=== PATIENT | female | born 1970 | race Caucasian/White ===

== ENCOUNTER 2021-03-02 07:20 | Inpatient (IN) ==
[2021-03-02] MEDS ORDERED: PANTOPRAZOLE 40 MG VIAL IV ONE (08:00)
--- NOTE | 2021-03-02 08:04 | Emergency Department Note ---
GI Bleed HPI General Chief complaint: Rectal Bleed Stated complaint: Rectal bleeding Time Seen by Provider: 03/02/21 07:38 Source: patient Mode of arrival: ambulatory Limitations: no limitations History of Present Illness HPI Narrative: Narrative: Presents to room T2 for evaluation of bright red blood per rectum. The patient reports a remote history of duodenal ulcer approximately 15 years ago. She states she is currently not taking any medication has had no difficulty until approximately 11 PM last night. She reports some mild to moderate midepigastric discomfort. This was followed by a large amount of bright red blood per rectum. She states that she went back to bed and then when she woke up this morning he again had a large amount of bright red blood per rectum. She denies any dark stool or melena. She did report some nausea but did not have any vomiting or hematemesis. She denies any lighthea dedness or dizziness. Symptoms are constant. She denies any exacerbating or alleviating factors. No reported blood thinners. Related Data Allergies Allergy/AdvReac Type Severity Reaction Status Date / Time cephalexin Allergy Severe Anaphylaxis Verified 03/02/21 07:21 Opioids - Morphine Analogues Allergy Severe Anaphylaxis Verified 03/02/21 07:21 Penicillins Allergy Severe Anaphylaxis Verified 03/02/21 07:21 Sulfa (Sulfonamide Allergy Severe Anaphylaxis Verified 03/02/21 07:21 Antibiotics) [place] Allergy Intermediate Anaphylaxis Verified 03/02/21 07:21 adhesive tape AdvReac Intermediate Rash Verified 03/02/21 07:21 latex AdvReac Rash Verified 03/02/21 07:21 Review of Systems ROS ROS Narrative: Narrative: All systems ED: reviewed and negative except as stated. [facility] Narrative Patient History Narrative: Narrative: Medical/Surgical/Family History All Active Problems (Updated 03/02/21 @ 10:26 by Júnior Sykes MD) Hematochezia (Acute) Abdominal pain (Acute) Injury of hand, left (Acute) History of hysterectomy for benign disease (Acute) S/P thyroidectomy (Acute) History of goiter (Acute) Social History Smoking Status: Never smoker Exam Narrative Narrative: Narrative: General Limitations: no limitations General appearance: Present alert and in no apparent distress Head Head: Present atraumatic, normocephalic and normal inspection Eye Eye: Present normal appearance and EOMI; Absent conjunctival injection ENT ENT: Present normal exam and mucous membranes moist Neck Neck: Present normal inspection and trachea midline Respiratory Respiratory: Present normal lung sounds bilaterally; Absent respiratory distress Cardiovascular Cardiovascular: Present regular rate, normal rhythm and normal heart sounds Adbominal Abdominal: Present soft and tenderness (Mild tenderness to palpation of the epigastric region); Absent distention, guarding and rebound Extremities Extremities: Present normal inspection; Absent tenderness Back Back: Present normal inspection; Absent tenderness Neurological Neurological: Present alert, oriented X3 and CN II-XII intact; Absent motor sensory deficit Psychiatric Psychiatric: Present normal affect and normal mood Skin Skin: Present warm (WNL) and dry; Absent rash Course Vital Signs Vital signs: Vital Signs Temperature 98.2 F 03/02/21 07:21 Pulse Rate 88 03/02/21 07:21 Respiratory Rate 16 03/02/21 07:21 Blood Pressure 144/62 03/02/21 07:21 Pulse Oximetry (%) 98 03/02/21 07:21 Temperature 98.2 F 03/02/21 07:21 Pulse Rate 88 03/02/21 07:21 Respiratory Rate 16 03/02/21 07:21 Blood Pressure 144/62 03/02/21 07:21 Pulse Oximetry (%) 98 03/02/21 07:21 MDM MDM Narrative Medical decision making narrative: Narrative: The patient presents for evaluation of epigastric pain with associated rectal bleeding. The patient's labs are unremarkable. The patient has had stable vital signs throughout the course the emergency department with no further episodes of rectal bleeding. The patient CT scan does show an ill-defined triangular structure in the left pelvis which has an undetermined etiology. I did discuss the case with the on- call foundry process engineer, Dr. Hansen. He is requested the patient have a GI prep and will plan to perform colonoscopy this afternoon. I discussed this treatment plan with the patient. Lab Data Lab results reviewed: Yes I reviewed the patient's lab results. Result diagrams: 03/02/21 08:12 03/02/21 08:12 Labs: Lab Results 03/02/21 03/02/21 03/02/21 Range/Units 08:12 08:12 08:16 WBC 13.2 H (4.5-11.0) K/mcL RBC 4.49 (4.00-5.20) M/mcL Hgb 14.8 (12.0-15.0) g/dL Hct 44.3 (36.0-48.0) % MCV 98.7 (80.0-100.0) fL MCH 33.0 (26.0-34.0) pg MCHC 33.4 (31.0-36.0) g/dL RDW 12.2 (11.5-14.5) % Plt Count 202 (140-440) K/mcL MPV 12.2 H (7.4-10.4) fL Neut % (Auto) 84.4 H (38.0-78.0) % Lymph % (Auto) 10.5 L (15.0-49.0) % [place] % (Auto) 4.6 (1.0-12.0) % Eos % (Auto) 0.2 (0.0-7.0) % Baso % (Auto) 0.3 (0.0-2.0) % Lymph # (Auto) 1.39 L (1.50-4.80) K/mcL [place] # (Auto) 0.60 (0.10-0.90) K/mcL Eos # (Auto) 0.02 (0.00-0.70) K/mcL Baso # (Auto) 0.04 (0.00-0.20) K/mcL Absolute Neutrophils 11.13 H (1.80-8.00) K/mcL POC PT 11.8 L (11.9-14.5) sec POC INR 1.0 (0.8-1.2) Sodium 139 (133-145) mmol/L Potassium 3.7 (3.3-5.1) mmol/L Chloride 105 (96-108) mmol/L Carbon Dioxide 22 (22-30) mmol/L Anion Gap 12.0 (8.0-16.0) BUN 11 (6-20) mg/dL Creatinine 0.7 (0.6-1.1) mg/dL POC Creatinine 0.5 L (0.6-1.2) mg/dL GFR Calculation 99 Glucose 135 H (70-105) mg/dL Calcium 9.4 (8.6-10.4) mg/dL Total Bilirubin 0.4 (0.1-1.0) mg/dL AST 31 (<32) U/L ALT 37 (<40) U/L Alkaline Phosphatase 134 H (39-117) U/L Total Protein 7.0 (5.9-8.4) gm/dL Albumin 4.3 (3.2-5.2) gm/dL Globulin 2.7 (2.2-3.7) gm/dL Albumin/Globulin Ratio 1.6 (1.0-2.3) Lipase 13 (7-60) U/L Radiology Data Radiology results reviewed: Yes I reviewed the patient's radiology results. Discharge Plan Patient/Caregiver Discharge Instructions Pt seen by ASSISTANT PROFESSOR OF MUSIC/PA only: No Clinical Impression: Hematochezia, Abdominal pain Patient Disposition: Xfer As Outpt/Obs ([facility]) Follow up with: Nghia Hurley MD [Primary Care Provider] -
[2021-03-02 08:26] LABS: POC Pro Time 11.8 sec (11.9-14.5)
[2021-03-02 08:28] LABS: POC Creatinine 0.5 mg/dL (0.6-1.2)
--- NOTE | 2021-03-02 09:17 | Cat Scan Report ---
INDICATION: GI BLEED COMPARISON: None. TECHNIQUE: Axial images were obtained through the abdomen and pelvis. Sagittally and coronally reformatted images. This patient has a history of severe contrast allergy FINDINGS: Lung bases:No pulmonary parenchymal density. No calcified or noncalcified nodule. No pleural or pericardial effusion Liver:Negative to the limits of noncontrast enhanced examination. Liver contour is smooth without evidence for cirrhosis Gallbladder, bilary:No calcified gallstones. No gallbladder wall thickening. No pericholecystic fluid. No dilated bile ducts Spleen:No splenomegaly Pancreas:No pancreatic mass. No peripancreatic abnormality Adrenal glands:Negative Kidneys, ureters, bladder:No obstructing or nonobstructing renal calculi. No hydronephrosis. No renal mass No hydroureter. No ureteral stone No bladder calculus Gastrointestinal:No significant diverticulosis or evidence for diverticulitis. No detectable colonic mass No mechanical small bowel obstruction. No small bowel dilatation. Appendix: The appendix is negative Vascular: Mild calcification of the abdominal aorta. No abdominal aortic aneurysm Lymphatic:No retroperitoneal adenopathy. No significant mesenteric adenopathy. Mesentery, peritoneum:No free intraperitoneal fluid. No intra-abdominal abscess. No pneumoperitoneum Reproductive:Previous hysterectomy. Ovaries are not well visualized. There is a triangular shaped soft tissue density in the left hemipelvis. This measures 2.3 x 4.9 x 3.8 cm. This is contiguous with bowel. There is a calcification within this. Etiology is not certain. This may be due to postoperative scarring as this patient has had a prior hysterectomy. Margins are not convex as would be typical of lymphadenopathy. If there are any comparison studies available these be helpful to review. 3-[address] follow-up with oral contrast material may be helpful. Patient apparently cannot receive intravenous contrast material. Pelvic MRI scan with intravenous contrast material could be helpful. Musculoskeletal:No lumbar compression fractures. No lytic lesions. Sacrum, pelvis, hips are negative. No anterior abdominal wall or inguinal hernia. IMPRESSION: 1. Previous hysterectomy 2. Triangular-shaped soft tissue density in the left side of the pelvis. Etiology is not certain. Follow-up CT scan or contrast enhanced MRI scan may be of benefit 3. No other abnormalities. Intravenous contrast material was not administered due to history of severe contrast allergy The exam was performed using radiation dose optimization techniques including, but not limited to, automated exposure control, adjustment of the mA and/or kV according to patient size and use of iterative reconstruction technique. Interpreted and Authenticated by: Aiden Hopper 03/02/21
[2021-03-02 09:21] LABS: ALT/SGPT 37 U/L (<40); AST/SGOT 31 U/L (<32); Albumin 4.3 gm/dL (3.2-5.2); Albumin/Globulin Ratio 1.6 (1.0-2.3); Alkaline Phosphatase 134 U/L (39-117); Bilirubin,Total 0.4 mg/dL (0.1-1.0); Blood Urea Nitrogen 11 mg/dL (6-20); Calcium 9.4 mg/dL (8.6-10.4); Carbon Dioxide 22 mmol/L (22-30); Chloride 105 mmol/L (96-108); Globulin 2.7 gm/dL (2.2-3.7); Glomerular Filtration Rate 99; Glucose 135 mg/dL (70-105)
[2021-03-02 09:30] LABS: Basophils # (Auto) 0.04 K/mcL (0.00-0.20); Basophils % (Auto) 0.3 % (0.0-2.0); Eosinophils # (Auto) 0.02 K/mcL (0.00-0.70); Eosinophils % (Auto) 0.2 % (0.0-7.0); Hematocrit 44.3 % (36.0-48.0); Hemoglobin 14.8 g/dL (12.0-15.0); Lymphocytes # (Auto) 1.39 K/mcL (1.50-4.80); Lymphocytes % (Auto) 10.5 % (15.0-49.0); Mean Cell Volume 98.7 fL (80.0-100.0); Mean Corpuscular HGB Conc 33.4 g/dL (31.0-36.0); Mean Platelet Volume 12.2 fL (7.4-10.4); Monocytes % (Auto) 4.6 % (1.0-12.0); Neutrophils % (Auto) 84.4 % (38.0-78.0); Platelet Count 202 K/mcL (140-440); RBC 4.49 M/mcL (4.00-5.20); Red Cell Distribution Width 12.2 % (11.5-14.5); WBC 13.2 K/mcL (4.5-11.0)
[2021-03-02] MEDS ORDERED: PEG 3350/NA SULF,BICARB,CL/KCL 4,000 ML ORAL.SOL PO ONE (10:25)
[2021-03-02] MEDS ORDERED: FAMOTIDINE/PF 20 MG/2 ML VIAL IV ONE (12:24)
[2021-03-02] MEDS ORDERED: methylPREDNISolone SOD SUCC 125 MG/2 ML VIAL IV ONE (12:24)
[2021-03-02] MEDS ORDERED: diphenhydrAMINE 50 MG/ML VIAL IV ONE (12:24)
--- NOTE | 2021-03-02 15:21 | Internal Med History&Physical ---
HPI History of Present Illness Patient information: Note initiated : 03/02/21 at 3:04 pm Service Date, if different from initiated Date: [] Patient: Priti Alves 50 y/o F admitted on for Rectal Bleeding . Chief Complaint: [] History of present illness: Ms. Alves is a 50 year old female with a history of left thyroidectomy, hysterectomy complicated by ovarian abscess requiring multiple surgeries and mesh placement, multiple reported allergies who presented to the ED with signs of hematochezia associated with sharp diffuse abdominal pain. In the ED, the patient was tachycardic however hemodynamically stable. She is afebrile and in no distress. Routine labs show a leukocytosis likely stress-induced, hemoglobin was normal. Abdominal exam is soft, nontender, no guarding. The patient has irregular tachycardia on exam. CT abdomen and pelvis without contrast due to patient allergy showed a previous hysterectomy, and a triangular shaped soft tissue density in the left side of the pelvis of uncertain etiology, no other abnormalities were noted on the CT scan. The patient refused routine bowel preparation with GoLYTELY due to her history of allergies. She is willing to try Epson salt and multiple enemas for bowel preparation. Review of systems Constitutional: Positive for chills blood no fevers Eyes: no vision changes or pain Cardiovascular: Positive for episodes of tachycardia, no chest pain Respiratory: no cough or dyspnea Gastrointestinal: Positive for pain and nausea, no nausea. Positive for bright red blood per rectum. Genitourinary: no dysuria or difficulty voiding Musculoskeletal: Positive back pain Integumentary: no skin lesion or wound Neurological: no focal weakness or numbness Psychiatric: Denies anxiety PFSH PFSH All Active Problems (Updated 03/02/21 @ 10:26 by Júnior Sykes MD) Hematochezia (Acute) Abdominal pain (Acute) Injury of hand, left (Acute) History of hysterectomy for benign disease (Acute) S/P thyroidectomy (Acute) History of goiter (Acute) MEDS/ALLERGIES Home Medications and Allergies Home Medications Medication Instructions Recorded Confirmed Type [id number] 1 tab PO DAILY 03/02/21 03/02/21 History nettle leaf (urtica dioica) 425 mg PO PRN PRN 03/02/21 03/02/21 History [[place] [facility]] Allergies Allergy/AdvReac Type Severity Reaction Status Date / Time cephalexin Allergy Severe Anaphylaxis Verified 03/02/21 07:21 Opioids - Morphine Analogues Allergy Severe Anaphylaxis Verified 03/02/21 07:21 Penicillins Allergy Severe Anaphylaxis Verified 03/02/21 07:21 Sulfa (Sulfonamide Allergy Severe Anaphylaxis Verified 03/02/21 07:21 Antibiotics) [place] Allergy Intermediate Anaphylaxis Verified 03/02/21 07:21 adhesive tape AdvReac Intermediate Rash Verified 03/02/21 07:21 latex AdvReac Rash Verified 03/02/21 07:21 EXAM Constitutional Vitals: Temp Pulse Resp BP Pulse Ox 98.2 F 84 16 132/108 96 03/02/21 07:21 03/02/21 14:37 03/02/21 07:21 03/02/21 14:31 03/02/21 14:37 Additional findings Additional findings: Head: Atraumatic, normal inspection. Eyes: normal appearance, no scleral icterus. Neck: full ROM Respiratory: no respiratory distress. Cardiovascular: Irregular tachycardia, S1, S2. GI/Abdominal: soft, nontender, no guarding. Extremities: full range of motion, nontender. Neurological: CN II-XII intact, intact motor, intact sensation. Psychiatric: normal mood. Skin: warm, normal color DATA Data Completed and Pending Labs: Labs from last 24 hours 03/02/21 03/02/21 03/02/21 08:16 08:12 08:12 WBC 13.2 H RBC 4.49 Hgb 14.8 Hct 44.3 MCV 98.7 MCH 33.0 MCHC 33.4 RDW 12.2 Plt Count 202 MPV 12.2 H Neut % (Auto) 84.4 H Lymph % (Auto) 10.5 L [place] % (Auto) 4.6 Eos % (Auto) 0.2 Baso % (Auto) 0.3 Lymph # (Auto) 1.39 L [place] # (Auto) 0.60 Eos # (Auto) 0.02 Baso # (Auto) 0.04 Absolute Neutrophils 11.13 H POC PT 11.8 L POC INR 1.0 Sodium 139 Potassium 3.7 Chloride 105 Carbon Dioxide 22 Anion Gap 12.0 BUN 11 Creatinine 0.7 POC Creatinine 0.5 L GFR Calculation 99 Glucose 135 H Calcium 9.4 Total Bilirubin 0.4 AST 31 ALT 37 Alkaline Phosphatase 134 H Total Protein 7.0 Albumin 4.3 Globulin 2.7 Albumin/Globulin Ratio 1.6 Lipase 13 A/P Narrative A/P Narrative: Assessment: 50-year-old female with history of partial thyroidectomy, hysterectomy (age 25) complicated by perianal abscess requiring revision surgery and mesh placement, reported history of rectocele s/p repair, multiple reported allergies admitted for hematochezia associated with diffuse sharp abdominal pain. Abdominal exam in the ED was benign. Hemoglobin normal. Patient refused golyetely due to allergies therefore admitted for alternative bowel preparation. #Hematochezia-likely lower GI bleed #Tachycardia #Leukocytosis-suspect stress induced #Left pelvic soft tissue density -reported on CT scan, likely related to previous surgical complications -unclear if associated with GI bleed #Hx hysterectomy #Hx partial thyroidectomy #Multiple allergies Plan -Admit to observation. -Trend hemoglobin. -Follow CBC, vitals trend given leukocytosis. -Bowel preparation w/ Epson salts and water and tap water enema in AM, patient refuses other bowel preperation options. -GI consulting. -Clear liquid diet for bowel preparation. -EKG for rhythm evaluation-afib? -DVT ppx: SCD for now. -Code status: Full -Disposition: home Time Spent With Patient Time: Total time spent is greater than 50% in coordination of care (as documented) at patient's floor/unit and/or counseling patient:
[2021-03-02] MEDS ORDERED: DOCUSATE SODIUM 100 MG CAPSULE PO PRN (15:55)
[2021-03-02] MEDS ORDERED: ONDANSETRON 4 MG/2 ML VIAL IV PRN (15:55)
[2021-03-02] MEDS ORDERED: SENNOSIDES 1 TABLET PO PRN (15:55)
[2021-03-02] MEDS ORDERED: [UNRECOGNIZED DRUG - OTHER] PO ONE (17:00)
[2021-03-02] MEDS ORDERED: MAGNESIUM SULFATE PO ONE (17:00)
[2021-03-02] MEDS: 0.9 % SODIUM CHLORIDE 10 ML SYRINGE IV SCH (20:57)
[2021-03-03] MEDS ORDERED: HYDROmorphone 0.5 MG/0.5 ML SYRINGE ONE ×2 (00:07→05:18)
[2021-03-03] MEDS: HYDROmorphone 0.5 MG/0.5 ML SYRINGE IV PRN ×5 (00:08→19:03)
[2021-03-03] MEDS: 0.9 % SODIUM CHLORIDE 10 ML SYRINGE IV SCH ×3 (05:20→21:41)
[2021-03-03] MEDS ORDERED: [UNRECOGNIZED DRUG - OTHER] PO ONE (06:00)
[2021-03-03] MEDS ORDERED: MAGNESIUM SULFATE PO ONE (06:00)
[2021-03-03 07:17] LABS: Hematocrit 40.2 % (36.0-48.0); Hemoglobin 13.2 g/dL (12.0-15.0); Mean Cell Volume 100.2 fL (80.0-100.0); Mean Corpuscular HGB Conc 32.8 g/dL (31.0-36.0); Platelet Count 194 K/mcL (140-440); RBC 4.01 M/mcL (4.00-5.20); Red Cell Distribution Width 12.5 % (11.5-14.5); WBC 12.3 K/mcL (4.5-11.0)
[2021-03-03 08:13] LABS: Platelet Estimate NORMAL (Normal)
[2021-03-03 08:24] LABS: Band Neutrophils % 1 % (0-10); Lymphocytes % 20 % (15-49); Macrocytosis 1+ (None Seen); Monocytes % (Manual) 5 % (1-12); RBC Morphology ABNORMAL (Normal); Segmented Neutrophils % 74 % (38-78)
[2021-03-03] MEDS ORDERED: KETAMINE 50 MG/ML ML IV PRN (08:53)
[2021-03-03] MEDS ORDERED: PROPOFOL 200 MG/20 ML VIAL IV SCH (09:00)
[2021-03-03] MEDS ORDERED: MIDAZOLAM 2 MG/2 ML VIAL IV SCH (09:00)
--- NOTE | 2021-03-03 10:34 | Internal Med Progress Note ---
SUBJECTIVE Subjective Patient information: Note initiated : 03/03/21 at 10:34 am Service Date, if different from initiated Date: [] Patient: Priti Alves 50 y/o F admitted on 03/02/21 for Rectal Bleeding . Chief Complaint: [] Interval history: Ms. Alves is a 50 year old female with a history of left thyroidectomy, hysterectomy complicated by ovarian abscess requiring multiple surgeries and mesh placement, multiple reported allergies who presented to the ED with signs of hematochezia associated with sharp diffuse abdominal pain. In the ED, the patient was tachycardic however hemodynamically stable. She is afebrile and in no distress. Routine labs show a leukocytosis likely stress- induced, hemoglobin was normal. Abdominal exam is soft, nontender, no guarding. The patient has irregular tachycardia on exam. CT abdomen and pelvis without contrast due to patient allergy showed a previous hysterectomy, and a triangular shaped soft tissue density in the left side of the pelvis of uncertain etiology, no other abnormalities were noted on the CT scan. The patient refused routine bowel preparation with GoLYTELY due to her history of allergies. She is willing to try Epson salt and multiple enemas for bowel preparation. / Leukocytosis improved but high grade temperatures. Colonoscopy showed ischemic colitis-started clear liquid diet and bowel regimen. EKG showed atrial fibrillation. Physical exam Head: Atraumatic, normal inspection. Eyes: normal appearance, no scleral icterus. Neck: full ROM Respiratory: no respiratory distress. Cardiovascular: normal rate and rhythm, S1, S2. GI/Abdominal: soft, diffuse tenderness present, no guarding Extremities: full range of motion, nontender. Neurological: CN II-XII intact, intact motor, intact sensation. Psychiatric: normal mood. Skin: warm, normal color Constitutional Vitals: Vital Signs Temp Pulse Resp BP Pulse Ox 98.1 F 79 16 97/64 95 03/03/21 08:00 03/03/21 08:00 03/03/21 08:00 03/03/21 08:00 03/03/21 08:00 Period Temp Pulse Resp BP Sys/Young Pulse Ox Last 24 Hr 98.1 F-99.5 F 78-132 12-20 96-139/60-128 94-98 Intake and Output 03/02/21 03/03/21 03/03/21 21:59 05:59 13:59 Intake Total 680 240 500 Output Total 1325 500 500 Balance -645 -260 0 Weight 66.224 kg Intake & Output: Intake & Output 03/02/21 03/03/21 03/03/21 21:59 05:59 13:59 Intake Total 680 240 500 Output Total 1325 500 500 Balance -645 -260 0 Weight 66.224 kg Intake: Oral 680 240 500 Output: Void Amount 125 225 Urine/Stool Mix 1200 275 350 Stool 150 Other: Urine Appearance Clear Urine Color Bright Yellow Bright Yellow Blood Tinged Urine Odor Strong Stool Size Small Smear Small Stool Color Bright Red Blood Bright Red Blood Dark Red Blood Blood Tinged Stool Consistency Watery # Voids 3 # Bowel Movements 2 OBJ DATA Labs CBC & Chem 7: 03/03/21 05:35 03/02/21 08:12 Labs: Abnormal Lab Results 03/03/21 03/02/21 03/02/21 05:35 08:16 08:12 WBC 12.3 H MCV 100.2 H MPV 12.0 H Neut % (Auto) Lymph % (Auto) Lymph # (Auto) Absolute Neutrophils RBC Morphology Abnormal A Macrocytosis 1+ A POC PT 11.8 L POC Creatinine 0.5 L Glucose 135 H Alkaline Phosphatase 134 H 03/02/21 08:12 WBC 13.2 H MCV MPV 12.2 H Neut % (Auto) 84.4 H Lymph % (Auto) 10.5 L Lymph # (Auto) 1.39 L Absolute Neutrophils 11.13 H RBC Morphology Macrocytosis POC PT POC Creatinine Glucose Alkaline Phosphatase Meds: Medications Diagnostic Test (Pha) (Accu-Chek 1 Each Strip) 1 each FS UD PRN PRN Reason: DM Stop: 03/03/21 16:53 Docusate Sodium (Docusate Sodium 100 Mg Capsule) 100 mg PO BID PRN PRN Reason: Constipation Hydromorphone HCl (Hydromorphone 0.5 Mg/0.5 Ml Syringe) 0.25 mg IV Q4HP PRN; Protocol PRN Reason: Per Pain Protocol Last Admin: 03/03/21 05:20 Dose: 0.25 mg Documented by: Ketamine HCl (Ketamine 50 Mg/Ml Ml) 50 mg IV ONCE PRN PRN Reason: Sedation Stop: 03/03/21 16:53 Midazolam HCl (Midazolam 2 Mg/2 Ml Vial) 0 mg IV ONCE CHAD Stop: 03/03/21 16:53 Ondansetron HCl (Ondansetron 4 Mg/2 Ml Vial) 4 mg IV Q6HP PRN PRN Reason: Nausea And Vomiting Propofol (Propofol 200 Mg/20 Ml Vial) 0 mg IV UD [facility] Stop: 03/03/21 16:53 Senna (Sennosides 1 Tablet) 2 tab PO HS PRN PRN Reason: Constipation Sodium Chloride (0.9 % Sodium Chloride 10 Ml Syringe) 10 ml IV Q8 [facility] Last Admin: 03/03/21 05:20 Dose: 10 ml Documented by: A/P Narrative A/P Narrative: Assessment: 50-year-old female with history of partial thyroidectomy, hysterectomy (age 25) complicated by perianal abscess requiring revision surgery and mesh placement, reported history of rectocele s/p repair, multiple reported allergies admitted for hematochezia associated with diffuse sharp abdominal pain. Abdominal exam in the ED was benign. Hemoglobin normal. Patient refused golyetely due to allergies therefore admitted for alternative bowel preparation. #Ischemic colitis w/ hematochezia: resolved hematochezia #Atrial fibrillation-likely paroxysmal #Leukocytosis #Left pelvic soft tissue density -reported on CT scan, likely related to previous surgical complications #Hx hysterectomy #Hx partial thyroidectomy #Multiple allergies Plan -Clear liquid diet, bowel regimen, serial abdominal exams. -Follow CBC and CRP. -GI following. -Discuss atrial fibrillation diagnosis with patient. -DVT ppx: SCD -Code status: Full -Disposition: home Time Spent With Patient Time: Total time spent is greater than 50% in coordination of care (as documented) at patient's floor/unit and/or counseling patient: QUALITY VTE Deep Vein Thrombosis/Pulmonary Embolism Present on Admission: No
[2021-03-03] MEDS ORDERED: MIDAZOLAM 2 MG/2 ML VIAL ONE (12:46)
[2021-03-03] MEDS ORDERED: LACTULOSE 20 GM/30 ML ORAL.SOL PO PRN (13:47)
[2021-03-03] MEDS: LACTATED RINGERS 1,000 ML IV SCH ×2 (14:39→21:41)
[2021-03-03] MEDS ORDERED: MAGNESIUM HYDROXIDE 30 ML ORAL.SUSP PO SCH (21:00)
[2021-03-04] MEDS: 0.9 % SODIUM CHLORIDE 10 ML SYRINGE IV SCH ×3 (04:25→21:20)
[2021-03-04] MEDS: LACTATED RINGERS 1,000 ML IV SCH ×3 (06:30→21:20)
[2021-03-04 08:16] LABS: Basophils # (Auto) 0.03 K/mcL (0.00-0.20); Basophils % (Auto) 0.4 % (0.0-2.0); Eosinophils # (Auto) 0.11 K/mcL (0.00-0.70); Eosinophils % (Auto) 1.5 % (0.0-7.0); Hematocrit 39.6 % (36.0-48.0); Hemoglobin 13.4 g/dL (12.0-15.0); Lymphocytes # (Auto) 2.02 K/mcL (1.50-4.80); Lymphocytes % (Auto) 26.7 % (15.0-49.0); Mean Cell Volume 97.8 fL (80.0-100.0); Mean Corpuscular HGB Conc 33.8 g/dL (31.0-36.0); Mean Platelet Volume 11.7 fL (7.4-10.4); Monocytes # (Auto) 0.48 K/mcL (0.10-0.90); Monocytes % (Auto) 6.3 % (1.0-12.0); Neutrophils % (Auto) 65.1 % (38.0-78.0); Platelet Count 189 K/mcL (140-440); RBC 4.05 M/mcL (4.00-5.20); Red Cell Distribution Width 12.2 % (11.5-14.5); WBC 7.6 K/mcL (4.5-11.0)
[2021-03-04 08:30] LABS: ALT/SGPT 23 U/L (<40); AST/SGOT 22 U/L (<32); Albumin 3.8 gm/dL (3.2-5.2); Albumin/Globulin Ratio 1.6 (1.0-2.3); Alkaline Phosphatase 98 U/L (39-117); Bilirubin,Direct < 0.2 mg/dL (0-0.3); Bilirubin,Total 0.7 mg/dL (0.1-1.0); Blood Urea Nitrogen 8 mg/dL (6-20); Calcium 8.8 mg/dL (8.6-10.4); Carbon Dioxide 24 mmol/L (22-30); Chloride 102 mmol/L (96-108); Globulin 2.4 gm/dL (2.2-3.7); Glomerular Filtration Rate 111; Glucose 88 mg/dL (70-105); Lactate Dehydrogenase 147 U/L (135-225); Phosphorous 2.7 mg/dL (2.5-4.5); Triglycerides 164 mg/dL (<150); Uric Acid 9.2 mg/dL (2.5-8.0)
--- NOTE | 2021-03-04 09:25 | Internal Med Progress Note ---
SUBJECTIVE Subjective Patient information: Note initiated : 03/04/21 at 9:20 am Service Date, if different from initiated Date: [] Patient: Priti Alves 50 y/o F admitted on 03/03/21 for Rectal Bleeding . Chief Complaint: [] Interval history: Ms. Alves is a 50 year old female with a history of left thyroidectomy, hysterectomy complicated by ovarian abscess requiring multiple surgeries and mesh placement, multiple reported allergies who presented to the ED with signs of hematochezia associated with sharp diffuse abdominal pain. In the ED, the patient was tachycardic however hemodynamically stable. She is afebrile and in no distress. Routine labs show a leukocytosis likely stress- induced, hemoglobin was normal. Abdominal exam is soft, nontender, no guarding. The patient has irregular tachycardia on exam. CT abdomen and pelvis without contrast due to patient allergy showed a previous hysterectomy, and a triangular shaped soft tissue density in the left side of the pelvis of uncertain etiology, no other abnormalities were noted on the CT scan. The patient refused routine bowel preparation with GoLYTELY due to her history of allergies. She is willing to try Epson salt and multiple enemas for bowel preparation. 03/03 Leukocytosis improved but high grade temperatures. Colonoscopy showed ischemic colitis-started clear liquid diet and bowel regimen. EKG showed atrial fibrillation. 03/04 Improving abdominal discomfort. Discussed atrial fibrillation and management, CHADS-VASC score 1 and HAS-BLED score 0. Patient agreed to a TTE ECHO. Declined rate control medications but agreed to cardiology referral at discharge. Physical exam Head: Atraumatic, normal inspection. Eyes: normal appearance, no scleral icterus. Neck: full ROM Respiratory: no respiratory distress. Cardiovascular: irregular rhythm, tachycardia GI/Abdominal: soft, mild tenderness present, no guarding Extremities: full range of motion, nontender. Neurological: CN II-XII intact, intact motor, intact sensation. Psychiatric: normal mood. Skin: warm, normal color Constitutional Vitals: Vital Signs Temp Pulse Resp BP Pulse Ox 98.6 F 92 H 18 115/76 95 03/04/21 06:54 03/04/21 06:54 03/04/21 06:54 03/04/21 06:54 03/04/21 06:54 Period Temp Pulse Resp BP Sys/Young Pulse Ox Last 24 Hr 97.8 F-99.0 F 81-114 14-25 105-133/67-88 94-100 Intake and Output 03/03/21 03/04/21 03/04/21 21:59 05:59 13:59 Intake Total 2240 500 Output Total 825 350 Balance 1415 150 Weight 65.459 kg Intake & Output: Intake & Output 03/03/21 03/04/21 03/04/21 21:59 05:59 13:59 Intake Total 2240 500 Output Total 825 350 Balance 1415 150 Weight 65.459 kg Intake: Oral 2240 500 Output: Void Amount 350 Urine/Stool Mix 825 Other: Meal Breakfast Percent of Meal Consumed 50% Feeding Ability Independent Urine Appearance Clear Clear Urine Color Bright Yellow Straw Urine Odor Normal OBJ DATA Labs CBC & Chem 7: 03/04/21 07:40 03/04/21 07:40 Labs: Abnormal Lab Results 03/04/21 03/04/21 03/03/21 07:40 07:40 05:35 WBC 12.3 H MCV 100.2 H MPV 11.7 H 12.0 H Neut % (Auto) Lymph % (Auto) Lymph # (Auto) Absolute Neutrophils RBC Morphology Abnormal A Macrocytosis 1+ A POC PT Creatinine 0.5 L POC Creatinine Glucose Uric Acid 9.2 H Alkaline Phosphatase Triglycerides 164 H 03/02/21 03/02/21 03/02/21 08:16 08:12 08:12 WBC 13.2 H MCV MPV 12.2 H Neut % (Auto) 84.4 H Lymph % (Auto) 10.5 L Lymph # (Auto) 1.39 L Absolute Neutrophils 11.13 H RBC Morphology Macrocytosis POC PT 11.8 L Creatinine POC Creatinine 0.5 L Glucose 135 H Uric Acid Alkaline Phosphatase 134 H Triglycerides Meds: Medications Docusate Sodium (Docusate Sodium 100 Mg Capsule) 100 mg PO BID PRN PRN Reason: Constipation Hydromorphone HCl (Hydromorphone 0.5 Mg/0.5 Ml Syringe) 0.25 mg IV Q4HP PRN; Protocol PRN Reason: Per Pain Protocol Last Admin: 03/03/21 19:03 Dose: 0.25 mg Documented by: Lactated Ringer's (Lactated Ringers) 1,000 mls @ 125 mls/hr IV .Q8H [facility] Last Admin: 03/04/21 06:30 Dose: Not Given Documented by: Lactulose (Lactulose 20 Gm/30 Ml Oral.Lea) 20 gm PO QID PRN PRN Reason: Constipation Ondansetron HCl (Ondansetron 4 Mg/2 Ml Vial) 4 mg IV Q6HP PRN PRN Reason: Nausea And Vomiting Polyethylene Glycol (Polyethylene Glycol 3350 17 Gm Packet) 17 gm PO DAILY CHAD Senna (Sennosides 1 Tablet) 2 tab PO HS PRN PRN Reason: Constipation Sodium Chloride (0.9 % Sodium Chloride 10 Ml Syringe) 10 ml IV Q8 [facility] Last Admin: 03/04/21 04:25 Dose: 10 ml Documented by: A/P Narrative A/P Narrative: Assessment: 50-year-old female with history of partial thyroidectomy, hysterectomy (age 25) complicated by perianal abscess requiring revision surgery and mesh placement, reported history of rectocele s/p repair, multiple reported allergies admitted for hematochezia associated with diffuse sharp abdominal pain. Abdominal exam in the ED was benign. Hemoglobin normal. Patient refused golyetely due to allergies therefore admitted for alternative bowel preparation. Colonoscopy was consistent with ischemic colitis, GI feels likely from severe constipation. EKG showed atrial fibrillation. ECHO ordered. P atient started on clear liquid diet for two days then advance with bowel regimen. Abdominal discomfort improved and hematochezia resolved. The patient declined rate control medication for atrial fibrillation, not interested in anticoagulation after GI bleeding issues resolve. CHADS-VASC score 1, HAS-BLED score 0. #Ischemic colitis w/ hematochezia: resolved hematochezia #Paroxysmal atrial fibrillation #Leukocytosis: resolved #Left pelvic soft tissue density -reported on CT scan, likely related to previous surgical complications #Hx hysterectomy #Hx partial thyroidectomy #Multiple allergies Plan -Clear liquid diet, bowel regimen, serial abdominal exams. -IV fluid. -Diet advance per GI. -Discontinued dilaudid prn -TTE ECHO. -DVT ppx: SCD -Code status: Full -Disposition: home, cardiology referral for atrial fibrillation Time Spent With Patient Time: Total time spent is greater than 50% in coordination of care (as documented) at patient's floor/unit and/or counseling patient: QUALITY VTE Deep Vein Thrombosis/Pulmonary Embolism Present on Admission: No
--- NOTE | 2021-03-04 10:08 | Colonoscopy Procedure Note ---
Colonoscopy Procedure Notes Procedure Information Patient information: Note initiated : 03/04/21 at 10:04 am Service Date: 03/03/21 Patient: Priti Alves 50 y/o F admitted on 03/03/21 for Rectal Bleeding . Pre-op diagnosis general: GI Bleed, probable ischemic colitis Post-op diagnosis general: Ischemic colitis, rectal polyp Procedure: Colonoscopy with Bx Procedure narrative: The procedure, alternatives and risks were discussed with the patient and the patient's questions were answered. With endoscopist- administered intravenous sedation, the Olympus colonoscope was introduced into the rectum and advanced to the cecum. Ileocecal valve was identified, intubated, and several centimeters of the terminal ileum were examined and appeared normal. Erythema, edema and ulceration was seen extending from the distal transverse colon to the proximal sigmoid colon; this was biopsied. Appearance consistent with severe ischemic colitis. Colonic polyp was seen in the rectum. The rectal polyp was removed with biopsy forceps technique. It was retrieved for histological examination. Scope was withdrawn. Assessment: Ischemic colitis, rectal polyp
[2021-03-04] MEDS: POLYETHYLENE GLYCOL 3350 17 GM PACKET PO SCH (12:20)
[2021-03-05] MEDS: 0.9 % SODIUM CHLORIDE 10 ML SYRINGE IV SCH (04:43)
[2021-03-05 06:41] LABS: Basophils # (Auto) 0.05 K/mcL (0.00-0.20); Basophils % (Auto) 0.6 % (0.0-2.0); Eosinophils # (Auto) 0.18 K/mcL (0.00-0.70); Hematocrit 37.3 % (36.0-48.0); Hemoglobin 12.4 g/dL (12.0-15.0); Lymphocytes # (Auto) 2.12 K/mcL (1.50-4.80); Lymphocytes % (Auto) 23.4 % (15.0-49.0); Mean Cell Volume 98.2 fL (80.0-100.0); Mean Corpuscular HGB Conc 33.2 g/dL (31.0-36.0); Mean Platelet Volume 11.8 fL (7.4-10.4); Monocytes # (Auto) 0.61 K/mcL (0.10-0.90); Monocytes % (Auto) 6.7 % (1.0-12.0); Neutrophils % (Auto) 67.3 % (38.0-78.0); Platelet Count 203 K/mcL (140-440); Red Cell Distribution Width 12.3 % (11.5-14.5); WBC 9.1 K/mcL (4.5-11.0)
[2021-03-05 07:11] LABS: ALT/SGPT 19 U/L (<40); AST/SGOT 16 U/L (<32); Albumin 3.6 gm/dL (3.2-5.2); Albumin/Globulin Ratio 1.5 (1.0-2.3); Alkaline Phosphatase 99 U/L (39-117); Bilirubin,Direct < 0.2 mg/dL (0-0.3); Bilirubin,Total 0.7 mg/dL (0.1-1.0); Blood Urea Nitrogen 10 mg/dL (6-20); Calcium 8.8 mg/dL (8.6-10.4); Carbon Dioxide 24 mmol/L (22-30); Chloride 107 mmol/L (96-108); Globulin 2.4 gm/dL (2.2-3.7); Glomerular Filtration Rate 111; Glucose 89 mg/dL (70-105); Lactate Dehydrogenase 161 U/L (135-225); Phosphorous 2.8 mg/dL (2.5-4.5); Triglycerides 147 mg/dL (<150); Uric Acid 8.9 mg/dL (2.5-8.0)
[2021-03-05] MEDS: LACTATED RINGERS 1,000 ML IV SCH (10:16)
[2021-03-05] MEDS: POLYETHYLENE GLYCOL 3350 17 GM PACKET PO SCH (10:20)
--- NOTE | 2021-03-05 10:54 | Discharge Summary ---
Discharge Provider Provider Patient information: Note initiated : 03/05/21 at 10:39 am Service Date, if different from initiated Date: [] Patient: Priti Alves 50 y/o F admitted on 03/03/21 for Rectal Bleeding . Chief Complaint: [] Date of admission: 03/03/21 14:19 Discharge date: 03/05/21 Primary care physician: Nghia Hurley Consults: 03/02/21 Consult to Physician [CONS] Stat Comment: Consulting Provider: En Kohler Reason For Exam: Physician to Consult Consult to Physician [CONS] Stat Comment: Consulting Provider: Nathaniel Yeung Reason For Exam: Physician to Consult Discharge Meds Discharge Medications Home Medications [id number] 1 tab PO DAILY 03/02/21 [History Confirmed 03/02/21 Last Taken 03/07/20] nettle leaf (urtica dioica) 425 mg PO PRN PRN 03/02/21 [History Confirmed 03/02/21 Last Taken 03/02/21] COURSE Hospital Course Hospital course: Ms. Alves is a 50 year old female with a history of left thyroidectomy, hysterectomy complicated by ovarian abscess requiring multiple surgeries and mesh placement, multiple reported allergies who presented to the ED with signs of hematochezia associated with sharp diffuse abdominal pain. In the ED, the patient was tachycardic however hemodynamically stable. She is afebrile and in no distress. Routine labs show a leukocytosis likely stress- induced, hemoglobin was normal. Abdominal exam is soft, nontender, no guarding. The patient has irregular tachycardia on exam. CT abdomen and pelvis without contrast due to patient allergy showed a previous hysterectomy, and a triangular shaped soft tissue density in the left side of the pelvis of uncertain etiology, no other abnormalities were noted on the CT scan. The patient refused routine bowel preparation due to her history of allergies however was willing to try Epson salt and multiple enemas for bowel preparation. 4 Leukocytosis improved but high grade temperatures. Colonoscopy showed ischemic colitis-started clear liquid diet and bowel regimen. EKG showed atrial fibrillation. 03/04 Improving abdominal discomfort. Discussed atrial fibrillation and management, CHADS-VASC score 1 and HAS-BLED score 0. Patient agreed to a TTE ECHO. Declined rate control medications but agreed to cardiology referral at discharge. / Tolerating full liquid diet. Hematochezia resolved and hemoglobin stable. Discharged to home to continue full liquid diet for a couple days before slowly advancing back to regular and continuing bowel regimen. The patient is taking prune juice and herbal remedies for bowel regimen. She refused Miralax, Lactulose, Milk of Magnesia due to concerns of allergies given her history of multiple previous issues with pharmacologic medications. Post hospital follow up; Follow up with cardiology to discuss atrial fibrillation. Follow up pending ECHO results. Consider MRI of pelvis to further evaluate triangular soft tissue density noted on CT scan. Discharge diagnosis: Ischemic colitis Secondary discharge diagnosis: Atrial fibrillation Constipation Time Spent with Patient Time attestation: Total time spent providing and/or coordinating discharge services: EXAM Constitutional Vitals: Temp Pulse Resp BP Pulse Ox 98.9 F 71 16 103/64 97 03/05/21 06:52 03/05/21 06:52 03/05/21 06:52 03/05/21 06:52 03/05/21 06:52 Additional findings Additional findings: Head: Atraumatic, normal inspection. Eyes: normal appearance, no scleral icterus. Neck: full ROM Respiratory: no respiratory distress. Cardiovascular: normal rate and rhythm, S1, S2. GI/Abdominal: soft, nontender, no guarding. Extremities: full range of motion, nontender. Neurological: CN II-XII intact, intact motor, intact sensation. Psychiatric: normal mood. Skin: warm, normal color Discharge Data Data Completed and Pending Labs on day of discharge: Labs from last 24 hours 03/05/21 03/05/21 05:41 05:41 WBC 9.1 RBC 3.80 L Hgb 12.4 Hct 37.3 MCV 98.2 MCH 32.6 MCHC 33.2 RDW 12.3 Plt Count 203 MPV 11.8 H Neut % (Auto) 67.3 Lymph % (Auto) 23.4 Anson % (Auto) 6.7 Eos % (Auto) 2.0 Baso % (Auto) 0.6 Lymph # (Auto) 2.12 Anson # (Auto) 0.61 Eos # (Auto) 0.18 Baso # (Auto) 0.05 Absolute Neutrophils 6.09 Sodium 139 Potassium 3.9 Chloride 107 Carbon Dioxide 24 Anion Gap 8.0 BUN 10 Creatinine 0.5 L GFR Calculation 111 Glucose 89 Uric Acid 8.9 H Calcium 8.8 Phosphorus 2.8 Magnesium 1.8 Total Bilirubin 0.7 Direct Bilirubin < 0.2 GGT 33 AST 16 ALT 19 Alkaline Phosphatase 99 Lactate Dehydrogenase 161 Total Protein 6.0 Albumin 3.6 Globulin 2.4 Albumin/Globulin Ratio 1.5 Triglycerides 147 Discharge Plan Patient/Caregiver Discharge Instructions Activity: increase activity as tolerated Diet: Full Liquid Prescriptions: Continued nettle leaf (urtica dioica) 425 mg Capsule 425 mg PO PRN PRN (Reason: Allergy Symptoms) RF: 0 [id number]-mushroomcmb [phone] [id number]-mg Tablet 1 tab PO DAILY RF: 0 Follow Up Plan Follow up with: Nghia Hurley MD [Primary Care Provider] - Smith Conrad MD [Physician] - (Atrial fibrillation ) Patient Disposition: Home, Self-Care Prognosis: Good Rehab Potential: Fair Overall status at discharge: patient is progressing back to baseline Discharge Orders: Discharge Order (Routine); Ordered 03/05/21 Ordered By: En SINGH VTE Deep Vein Thrombosis/Pulmonary Embolism Present on Admission: No
--- NOTE | 2021-03-07 13:24 | Surgical Pathology Report ---
Histology Microscopic Diagnosis Specimen A- COLON, DESCENDING, BIOPSY: --- COLONIC MUCOSA WITH ULCERATION, PSEUDO-MEMBRANES AND FEATURES COMPATIBLE WITH ISCHEMIC TYPE INJURY, SEE COMMENT. --- NO DYSPLASIA OR MALIGNANCY IDENTIFIED. Comments The descending colon biopsies (specimen A) show mucosal ulceration, atrophic crypts, pseudomembranes and features compatible with ischemic type injury. The differential diagnosis includes ischemic colitis, infection and drug reaction. Clinical and endoscopic correlation are suggested. Clinical History GI bleed. Procedural Impression Ischemic colitis. Gross Description Received in formalin labeled descending colon, are six fragments of collins tissue 0.2 to 0.4 cm. Totally submitted - one cassette. Microscopic Diagnosis Specimen B- COLON, RECTUM, POLYPECTOMY: --- MULTIPLE PORTIONS OF HYPERPLASTIC POLYP. (RLF) Gross Description Received in formalin labeled rectal polyp, are four fragments of collins tissue 0.1 to 0.2 cm. Totally submitted - one cassette. (KGW:sln) Electronically Signed Glory Stringer MD, FCAP Electronically Signed 03/07/2021 13:22
== END 2021-03-05 13:50 | disposition home or self-care (01) | DRG 394 ==
LOC: ED 07:20 → MEDSUR 07:20
PROVIDERS: ADMIT Internal Medicine; ATTEND Internal Medicine